=== PATIENT | male | born 1970 | race Two or more races ===

== ENCOUNTER 2025-07-02 13:36 | Outpatient (CLI) | payer BC ==
[2025-07-02 14:47] LABS: Hematocrit 45.9 % (41.0-53.0); Hemoglobin 16.0 g/dL (13.5-17.5); Mean Corpuscular Hemoglobin 31.9 pg (28.0-32.0); Mean Corpuscular Volume 91.3 fL (80.0-100.0)
[2025-07-02 15:27] LABS: Prostate Specific Antigen 1.62 ng/mL (0.0-4.0)
[2025-07-02 15:29] LABS: Anion Gap 9 (5-15); BUN/Creatinine Ratio 17.4 (10.0-20.0); Blood Urea Nitrogen 15 mg/dL (9-23); Calcium 9.4 mg/dL (8.7-10.4); Carbon Dioxide 28 mmol/L (20-31); Chloride 105 mmol/L (98-107); Glucose 82 mg/dL (74-106); Potassium 4.4 mmol/L (3.5-5.1); Sodium 142 mmol/L (136-145)
[2025-07-02 15:30] LABS: Alanine Aminotransferase 41 U/L (7-40); Triglycerides 501 mg/dL (< 150)
[2025-07-02 15:31] LABS: Free T4 (Free Thyroxine) 1.05 ng/dL (0.89-1.76)
[2025-07-02 15:37] LABS: Cholesterol 209 mg/dL (< 200); HDL Cholesterol 32 mg/dL (40-59)
[2025-07-02 16:51] LABS: Total Cells Counted 100.0 (100)
== END 2025-07-02 17:00 | disposition home or self-care (01) ==
LOC: LAB 13:36
PROVIDERS: ATTEND Specialist
DX: E55.9 Vitamin D deficiency, unspecified (principal); Z13.220 Encounter for screening for lipoid disorders; Z13.1 Encounter for screening for diabetes mellitus; Z11.52 Encounter for screening for COVID-19; Z12.5 Encounter for screening for malignant neoplasm of prostate; Z12.11 Encounter for screening for malignant neoplasm of colon
CPT/HCPCS: 36415; 80048; 80061; 82306; 82607; 82746; 83036; 84153; 84403; 84439; 84443; 84450; 84460; 85007; 85027